=== PATIENT | male | born 1985 | race African-American/Black ===

== ENCOUNTER → 2018-04-16 17:27 | Outpatient (CLI) | payer BC ==
[2018-04-16 17:55] LABS: BASOPHILS 0.3 % (0-2); EOSINOPHILS 2.2 % (0-7); HEMATOCRIT 44.1 % (42.0-54.0); HEMOGLOBIN 15.1 g/dL (13.5-17.5); IMMATURE GRANULOCYTES 0.3 % (0-5); LYMPHOCYTES 44.2 % (15-50); MCH 31.7 pg (26.0-34.0); MCHC 34.2 g/dL (31.0-37.0); MCV 92.5 fL (80.0-100.0); MEAN PLATELET VOLUME 9.8 fL (7.4-10.4); MONOCYTES 9.5 % (2-11); NEUTROPHILS 43.5 % (40-80); PLATELET COUNT 215 10x3/uL (130-400); RBC 4.77 10x6/uL (4.20-6.10); RDW 11.9 % (11.5-14.5); WBC 3.2 10x3/uL (4.8-10.8)
== END | disposition home or self-care (01) ==
LOC: D.LABREF 17:27
PROVIDERS: Student in an Organized Health Care Education/Training Program
DX: Z00.00 Encounter for general adult medical examination without abnormal findings (principal)